=== PATIENT | male | born 1945 ===

== ENCOUNTER 2019-11-26 15:35 | Emergency (ER) | payer OTHER ==
[~2019-11-26] VITALS: Ht 175.3 cm; Wt 52.6 kg
[2019-11-26] MEDS ORDERED: SODIUM CHLORIDE 0.9% 1,000 ML IV ONE (15:58)
[2019-11-26 16:35] LABS: Hemoglobin 13.4 g/dL (13.5-17.5); Mean Corpuscular Hgb Conc. 32.2 g/dL (32.0-36.0); Red Blood Cells 4.32 10^6/uL (4.5-5.90)
[2019-11-26 16:38] LABS: Hematocrit 41.6 % (41.0-53.0); Mean Corpuscular Volume 96.3 fL (80.0-100.0); Platelet Count (auto) 271 10^3/uL (140-450); Red Cell Distribution Width 14.3 % (11.8-14.3); White Blood Cell 6.4 10^3/uL (4.4-10.8)
[2019-11-26 16:40] LABS: Band Neutrophils % (manual) 0; Basophils % (manual) 0 (0.0-2.0); Blast Cells 0; Metamyelocytes % 0; Myelocytes % 0; Promyelocytes % 0; Reactive Lymphocytes 0
[2019-11-26 16:48] LABS: Anion Gap 8 (5-15); Blood Urea Nitrogen 23 mg/dL (7-18); Calcium 9.7 mg/dL (8.5-10.1); Carbon Dioxide 26 mmol/L (21-32); Chloride 102 mmol/L (98-107); Glucose 106 mg/dL (74-106); Potassium 4.8 mmol/L (3.5-5.1); Sodium 136 mmol/L (136-145)
[2019-11-26 16:50] LABS: BUN/Creatinine Ratio 16.9; GFR African American 66 mL/min; GFR Non-African American 54 mL/min
[2019-11-26 16:53] LABS: Alanine Aminotransferase 16 U/L (16-61); Alkaline Phosphatase 56 U/L (45-117); Aspartate Aminotransferase 23 U/L (15-37); Total Protein 8.6 g/dL (6.4-8.2)
[2019-11-26 17:20] LABS: INR 1.05 (0.9-1.15); Partial Thromboplastin Time 22.9 sec (23.64-32.05)
[2019-11-26 17:26] VITALS: BP 139/76
[2019-11-26 18:14] LABS: Eosinophils % (manual) 3 (0-7); Lymphocytes % (manual) 20 (10.0-50.0); Monocytes % (manual) 2 (0-12)
== END 2019-11-26 18:32 | disposition home or self-care (01) ==
LOC: ER 15:35
DX: R62.7 Adult failure to thrive (principal); K80.80 Other cholelithiasis without obstruction; I95.9 Hypotension, unspecified; E86.0 Dehydration; J45.909 Unspecified asthma, uncomplicated; I50.9 Heart failure, unspecified; Z85.46 Personal history of malignant neoplasm of prostate; Z90.49 Acquired absence of other specified parts of digestive tract
CPT/HCPCS: 36415; 71045; 71250; 74176; 80053; 83880; 84484; 85007; 85027; 85610; 85730; 93005; 96360; 99284; J7030